=== PATIENT | female | born 1955 | race Caucasian/White ===

== ENCOUNTER 2019-08-09 19:28 | Emergency (ER) | payer OTHER ==
[~2019-08-09] VITALS: Ht 170.2 cm; Wt 93.4 kg
[2019-08-09] MEDS ORDERED: LISINOPRIL-HCT1 EACH PO (19:47)
[2019-08-09] MEDS ORDERED: SIMVASTATIN80 MG PO (19:47)
[2019-08-09 20:05] LABS: URINE BILIRUBIN NEGATIVE (Negative); URINE BLOOD NEGATIVE (Negative); URINE CLARITY CLEAR; URINE COLOR STRAW; URINE GLUCOSE-RANDOM NEGATIVE (Negative); URINE KETONES NEGATIVE (Negative); URINE LEUKOCYTES-REFLEX NEGATIVE (Negative); URINE NITRITE-REFLEX NEGATIVE (Negative); URINE PROTEIN NEGATIVE (Negative); URINE SPECIFIC GRAVITY <= 1.005 (1.005-1.030); URINE UROBILINOGEN 0.2 E.U./dl (0.2-1.0)
[2019-08-09 20:22] LABS: ABSOLUTE EOSINOPHILS 0.2 thou/uL (0.0-0.7); ABSOLUTE LYMPHOCYTES 2.3 thou/uL (0.8-5.3); ABSOLUTE MONOCYTES 0.4 thou/uL (0.0-1.2); ABSOLUTE NEUTROPHILS 2.6 thou/uL (1.6-8.1); BASOPHILS 0.7 %; EOSINOPHILS 3.1 %; HEMATOCRIT 41.7 % (37.0-47.0); HEMOGLOBIN 14.6 gm/dL (12.0-15.0); LYMPHOCYTES 42.4 %; MCHC 35.1 g/dL (28.0-37.0); MCV 94.1 fL (80.0-100.0); MONOCYTES 6.8 %; MPV 9.6 fl. (7.2-11.1); NUCLEATED RBCS 0 /100WBC; PLATELET COUNT* 138 thou/uL (150-400); RBC 4.43 mil/uL (4.20-5.00); RDW-CV 12.9 % (10.5-14.5); WBC 5.4 thou/uL (4.0-11.0)
[2019-08-09 20:35] LABS: CREATININE 0.7 mg/dL (0.6-1.3); POTASSIUM 3.6 mmol/L (3.5-5.1)
[2019-08-09 20:45] LABS: PROTIME 10.7 Seconds (9.20-11.50)
[2019-08-09 20:46] LABS: TOTAL BILIRUBIN 0.5 mg/dL (<0.1-1.0)
[2019-08-09] MEDS ORDERED: PRINIVIL10 MG PO (21:30)
[2019-08-09 22:01] VITALS: BP 148/70
--- NOTE | 2019-08-11 08:38 | EKG ---
[place] [address] ELECTROCARDIOGRAM REPORT Name: SHENA MÉNDEZ Room: [facility]#: [id number] Admission: 08/09/19 Attend Phys: Discharge: 08/09/19 Date of : 53 Report #: [id number] THIS REPORT FOR: //name// [facility] ED Test Date: 2019-08-09 Test Time: 19:55:20 Pat Name: SHENA MÉNDEZ Department: Room: Gender: F [employer] Operator: GERALD : 1955 Requested By: Nell Ash Order Number: [id number] MD: Jovan Devlin Measurements Intervals [place] Rate: 74 P: 54 [place]: 154 QRS: -2 QRSD: 93 T: 2 QT: 387 QTc: 430 Interpretive Statements Sinus rhythm Left atrial enlargement Abnormal R-wave progression, early transition Inferior infarct, old No previous ECG available for comparison Electronically Signed On 08-11-2019 8:38:29 CDT by Jovan Devlin [email or web address] <ELECTRONICALLY SIGNED> By: Jovan Devlin MD, [facility] 08/11/19 0838 54 53 Jovan Devlin MD, FACC /EPI
== END 2019-08-09 22:02 | disposition home or self-care (01) ==
LOC: M.ERS 19:28
PROVIDERS: Emergency Medicine
DX: I10 Essential (primary) hypertension (principal); E78.00 Pure hypercholesterolemia, unspecified; Z88.1 Allergy status to other antibiotic agents

== ENCOUNTER → 2019-09-22 | Outpatient (CLI) | payer OTHER ==
[~2019-09-22] MED LIST: LISINOPRIL-HCT1 EACH PO; PRINIVIL10 MG PO; SIMVASTATIN80 MG PO
--- NOTE | 2019-09-22 16:52 | CARDNUC ---
[place] [address] CARDIAC NUCLEAR IMAGING REPORT Name: SHENA MÉNDEZ Room: [facility]#: [id number] Admission: 09/22/19 Attend Phys: Subhash Latham Discharge: Date of : 53 Date of Service: 09/22/19 1652 Report #: [id number] THIS REPORT FOR: //name// APPROVED REPORT Study performed: 09/22/2019 07:45:00 Indication: dyspnea Patient Location: Out-Patient Stress Tech: Belinda Toribio Stress Nurse: Hyun Levine RN Ht: 5 ft 9 in Wt: 213 lbs BSA: 2.12 m2 BMI: 31.45 Medical History Medical History: non obstructive cad Medications: Cartia XT, lisinopril, HCTZ, simvastatin Allergies: erythromycin Cardiac Risk Factors: Age, BMI, HLP, HTN Previous Cardiac Procedures: none Meds Held (24 hrs): none Resting Data Rest SPECT myocardial perfusion imaging was performed in supine position 30 minutes following the intravenous injection of 11.1 mCi of Tc-99m Sestamibi. Time of rest injection: 08:05 The images were gated to evaluate regional wall motion and calculate left ventricular ejection fraction. Administration Route: IV Administration Site: Right Hand Pharmacologic Stress Pharmacologic stress test was performed by injecting Regadenoson 0.4 mg IV push over 10-15 seconds immediately followed by the intravenous injection of 35.2 mCi of Tc-99m Sestamibi. Time of stress injection: 9:25 Administration Route: IV Administration Site: Right Hand Heart Rate at time of stress injection: 81 bpm. Gated Stress SPECT was performed 45 minutes after stress injection. The images were gated to evaluate regional wall motion and calculate left [place] [address] CARDIAC NUCLEAR IMAGING REPORT Name: SHENA MÉNDEZ Room: [facility]#: [id number] Admission: 09/22/19 Attend Phys: Subhash Latham Discharge: Date of : 53 Date of Service: 09/22/19 1652 Report #: [id number] Prone imaging was performed. Stress Test Details Stress Test: Pharmacologic stress was paired with low level exercise. HR Max Heart Rate (APMHR): 155 bpm Resting HR: 62 bpm Target HR (85% APMHR): 131 bpm Max HR Achieved: 108 bpm % of APMHR: 69 Recovery HR: 75 bpm BP Resting BP: 142/74 mmHg Max BP: 171/58 mmHg Recovery BP: 154/73 mmHg ECG Resting ECG: Sinus Rhythm Stress ECG: Sinus Tachycardia ST Change: None Arrhythmia: None Recovery ECG: Sinus Rhythm Recovery ST Change: None Recovery Arrhythmia: None Clinical Reason for Termination: Completed protocol Stress Symptoms: none The patient had no significant cardiac symptoms with Lexiscan infusion. Stress ECG Conclusion The baseline 12-lead EKG shows sinus rhythm without significant ST or T-wave abnormality. EKGs obtained during and post Lexiscan infusion showed sinus rhythm and sinus tachycardia with no significant ST or T wave changes when compared to baseline. There were no stress-induced arrhythmias. Study Quality Study: Good Artifact: Mild Breast artifact Study Data At rest, the left ventricular ejection fraction was 82%.. Post stress, the left ventricular ejection was 81%.. TID = 1.05. [place] [address] CARDIAC NUCLEAR IMAGING REPORT Name: DEVSHENA Room: [facility]#: [id number] Admission: 09/22/19 Attend Phys: Subhash Latham Discharge: Date of : 53 Date of Service: 09/22/19 1652 Report #: [id number] Perfusion Perfusion images show persistent photopenia 1-year-old mild extent involving the apex and very subtle photopenia of the anterolateral wall. Review of the raw data suggests breast attenuation artifact. Wall motion in these regions are normal. There were no reversible defects to suggest ischemia. Wall Motion Normal left ventricular wall motion. Nuclear Conclusion ECG Findings: negative for ischemia Clinical Findings: negative for ischemia Nuclear Findings: negative for ischemia Exercise Capacity: not assessed Left Ventricular Function: normal Risk Study: low Myocardial perfusion images show no reversible defects to suggest ischemia. Global LV systolic function is normal with no evidence of significant wall motion abnormality. The apical and anterolateral defects noted at rest and stress are likely due to breast attenuation artifact. This is not a high risk study. <Conclusion> The baseline 12-lead EKG shows sinus rhythm without significant ST or T-wave abnormality. EKGs obtained during and post Lexiscan infusion showed sinus rhythm and sinus tachycardia with no significant ST or T wave changes when compared to baseline. There were no stress-induced arrhythmias. <ELECTRONICALLY SIGNED> By: Jovan Devlin MD, FACC 09/22/191651 51 51 Jovan Devlin MD, FACC /INF
== END | disposition home or self-care (01) ==
LOC: M.NUC 07:47
DX: R06.00 Dyspnea, unspecified (principal); I25.10 Atherosclerotic heart disease of native coronary artery without angina pectoris; I10 Essential (primary) hypertension; E78.5 Hyperlipidemia, unspecified; Z98.890 Other specified postprocedural states; Z79.899 Other long term (current) drug therapy; Z88.8 Allergy status to other drugs, medicaments and biological substances